=== PATIENT | male | born 1945 | race Caucasian/White ===

== ENCOUNTER 2018-10-10 10:17 | Day surgery (SDC) | payer OTHER, MEDICARE ==
[2018-10-10] MEDS ORDERED: LIDOCAINE 3.5% GEL TUBE OPER (11:00)
[2018-10-10] MEDS: CIPROFLOXACIN 0.3% 2.5 ML OPH OPER (11:41)
[2018-10-10] MEDS: TROPICAMIDE 1% 15 ML OPH OPER (11:41)
[2018-10-10] MEDS: PROPARACAINE 0.5% 15 ML OPH OPER (11:42)
[2018-10-10] MEDS: PHENYLephrine 2.5% 15 ML OPH OPER (11:42)
[2018-10-10] MEDS ORDERED: CARBACHOL 0.01% 1.5 ML OPH INJ (12:53)
[2018-10-10] MEDS ORDERED: EPINEPHrine 1 MG INJ (12:54)
[2018-10-10] MEDS ORDERED: MIDAZOLAM 1 MG/ML 2 ML INJ (13:15)
[2018-10-10] MEDS ORDERED: FENTAnyl 50 MCG/ML VIAL (13:15)
[2018-10-10] MEDS ORDERED: OXYCODONE/ACETAMINOPHEN (5/325) TAB PO ×2 (14:00)
[2018-10-10] MEDS ORDERED: FENTAnyl 50 MCG/ML VIAL IV ×3 (14:00)
[2018-10-10] MEDS ORDERED: hydrALAzine 20 MG INJ IV (14:00)
[2018-10-10] MEDS ORDERED: ONDANSETRON 4 MG INJ IV (14:00)
[2018-10-10] MEDS: ACETAZOLAMIDE (SR) 500 MG CAP PO (14:23)
[2018-10-10] MEDS: CEFAZOLIN 1 GM INJ (14:23)
[2018-10-10] MEDS: TETRACAINE 0.5% 4 ML OPH (14:24)
[2018-10-10] MEDS: LIDOCAINE 1% (MPF) 30 ML INJ (14:24)
[2018-10-10] MEDS: TOBRAMYCIN 0.3% 3.5 GM OPH OINT (14:24)
[2018-10-10] MEDS: DEXAMETHASONE 4 MG/ML 1 ML INJ (14:25)
[2018-10-10] MEDS: SODIUM HYALURONATE 14 MG/ML SYG (14:25)
== END 2018-10-10 15:50 | disposition home or self-care (01) ==
LOC: SDS 10:17
DX: H25.11 Age-related nuclear cataract, right eye (principal); I10 Essential (primary) hypertension; E78.5 Hyperlipidemia, unspecified; E11.9 Type 2 diabetes mellitus without complications
CPT/HCPCS: 66984; 71045; 82962